=== PATIENT | male | born 1965 | race Caucasian/White ===

== ENCOUNTER → 2019-09-13 11:30 | Outpatient (BNVA) | payer OTHER, SELFPAY | PROVIDERS: Family Provider Family Medicine; PCP Nurse Practitioner; Visit Provider Urology | DX: R97.20 Elevated prostate specific antigen [PSA] (principal) | CPT/HCPCS: 81001; 84153 ==

== ENCOUNTER → 2021-09-12 10:22 | Outpatient (BNVA) | payer OTHER, SELFPAY | PROVIDERS: Family Provider Family Medicine; PCP Nurse Practitioner; Visit Provider Urology | DX: R97.20 Elevated prostate specific antigen [PSA] (principal); N40.1 Benign prostatic hyperplasia with lower urinary tract symptoms | CPT/HCPCS: 81003; 84153 ==

== ENCOUNTER 2022-06-28 14:41 | Outpatient (CLI) | payer OTHER, SELFPAY ==
--- NOTE | 2022-06-28 | MR_ITS ---
WS: [id number] INDICATION: Pain in RIGHT biceps tendon TECHNIQUE: MRI of the humerus without gadolinium enhancement. Coronal T1, coronal STIR, sagittal STIR , axial PD, axial T2 imaging. FINDINGS: Evidence of prior postoperative changes rotator cuff repair with humeral head anchors. Mode rate degenerative arthritis at the glenohumeral joint. Chronic thinning of the supraspinatus appears intact distally. Infraspinatus and teres minor appears intact. Subscapularis tendon appears intact. H ypertrophic spurring along the humeral head. Narrowing of the subacromial space. Chronic thinning of the supraspinatus. Small biceps tendon visualized in the proximal bicipital groove. Suggestion of edema in the biceps br achii muscle belly at the edge of the [id number]. Irregular flaccid appearing distal biceps tendon along the distal humerus likely torn from the distal insertion. This is not completely covered on th is study. MRI elbow will be necessary for complete evaluation. MR/MR humerus RT wo con* [id number] IMPRESSION: 1. At the edge of the [id number], biceps brachii tendon appears irregular a nd flaccid and likely completely torn from the distal insertion. Recommend orth opedic surgery consultation and MRI of the elbow for complete evaluation of the distal tendon. Distal insertion is not included on the study 2. Edema visualized in the biceps brachii muscle. 3. Small biceps tendon is seen in the proximal bicipital groove. 4. Evidence of prior rotator cuff surgery with thinning of the supraspinatus. Rotator cuff appears grossly intact. 5. Moderate degenerative arthritis glenohumeral joint with hypertrophic spurri ng and joint space narrowing. 6. Moderate degenerative arthritis AC joint with mild edema.
== END 2022-06-28 14:42 | disposition home or self-care (01) ==
PROVIDERS: PCP Nurse Practitioner; Visit Provider Nurse Practitioner
DX: M79.621 Pain in right upper arm (principal); M19.09 Primary osteoarthritis, other specified site; R60.9 Edema, unspecified
CPT/HCPCS: 73218

== ENCOUNTER 2023-08-29 12:18 | Emergency (ER) | payer OTHER, SELFPAY ==
[2023-08-29 12:34] VITALS: BP 137/74; PULSE 89; RESP 17; TEMP 36.7; O2SAT 92
--- NOTE | 2023-08-29 12:39 | XRR_ITS ---
PROCEDURE INFORMATION: Exam: XR Chest Exam date and time: 08/29/2023 12:42 PM Age: 58 years old Clinical indication: Cough and fever; Patient HX: Fever; Cough; Nausea TECHNIQUE: Imaging protocol: Radiologic exam of the chest. Views: 1 view. COMPARISON: MR humerus RT wo con* [id number] 06/28/2022 3:03 PM FINDINGS: Lungs: Atelectasis/patchy airspace opacities in left retrocardiac lung suspected. Pleural spaces: Unremarkable. No pleural effusion. No pneumothorax. Heart/Mediastinum: Unremarkable. No cardiomegaly. Bones/joints: Unremarkable. XR/XR chest 1V portable [id number] IMPRESSION: Atelectasis/patchy airspace opacities in left retrocardiac lung suspected. Recommend short-term follow-up study.
--- NOTE | 2023-08-29 12:49 | W.ED.FEVER ---
HPI - Fever General: Chief Complaint: Fever Stated Complaint: fever, nausea, diarrhea Time Seen by Provider: 08/29/23 12:34 History of Present Illness: 58-year-old man with a history of depression and hyperlipidemia who presents to the emergency room with continued fevers for the last 3 days. He was having follow-up for mastoiditis yesterday and had some nausea at that time. He is not on any antibiotics for the mastoiditis at this time. He had gone to ENT. He says he developed diarrhea yesterday and overnight. Initially did not have any. He had a mild cough. No shortness of breath. No altered mental status. He had copious sweats. I do state that he has had some tick bites. This was one of their concerns. They gone to urgent care from ENT because of the fever but nothing was done at the urgent care they say. Review of Systems Narrative: Constitutional symptoms: Negative except as documented in HPI. Skin symptoms: Negative except as documented in HPI. Eye symptoms: Negative except as documented in HPI. ENMT symptoms: Negative except as documented in HPI. Respiratory symptoms: Negative except as documented in HPI. Cardiovascular symptoms: Negative except as documented in HPI. Gastrointestinal symptoms: Negative except as documented in HPI. Genitourinary symptoms: Negative except as documented in HPI. Musculoskeletal symptoms: Negative except as documented in HPI. Neurologic symptoms: Negative except as documented in HPI. Psychiatric symptoms: Negative except as documented in HPI. Endocrine symptoms: Negative except as documented in HPI. [facility] ED PFS: Medical History (Updated 08/29/23 @ 13:52 by Lana Daly MD) Depression MRSA (methicillin resistant staph aureus) culture positive Nonspecific syndrome suggestive of viral illness BPH loc w urin obs/LUTS Elevated PSA Transient mild elevation of PSA (4.2) with normalization without treatment. Normal TEMITOPE's. Recommended continued screening Surgical History H/O knee surgery H/O hernia repair H/O shoulder surgery S/P tendon repair S/P tonsillectomy History of carpal tunnel release Family History Family/Other Cancer Esophageal, ovarian Mother , at age 73 Cancer ovarian -peritoneal Father , at age 78 Cancer esophageal cancer Social History Smoking and tobacco/nicotine status: never used tobacco/nicotine Alcohol intake: current Alcohol intake frequency: few times a month Substance/Drug Use: never Marital status: Current occupational status: retired Physical Exam Narrative: EXAM NARRATIVE: General: Alert, no acute distress. Skin: Warm, dry. Head: Normocephalic, atraumatic. Neck: Supple, trachea midline. Eye: Extraocular movements are intact. Ears, nose, mouth and throat: Tacky oral mucosa Cardiovascular: Regular, Normal peripheral perfusion. Respiratory: Lungs are clear to auscultation, respirations are non-labored, breath sounds are equal, Symmetrical chest wall expansion. Gastrointestinal: Soft, Nontender, Non distended, Normal bowel sounds. Musculoskeletal: Normal ROM, no deformity. Neurological: Alert and oriented, No focal neurological deficit observed. Psychiatric: Cooperative, appropriate mood & affect. Course Vital Signs: Vital signs: Vital Signs Temperature 98.1 F 08/29/23 12:34 Pulse Rate 89 08/29/23 12:34 Respiratory Rate 17 08/29/23 12:34 Blood Pressure 137/74 08/29/23 12:34 Pulse Oximetry 92 08/29/23 12:34 Oxygen Delivery Me thod Room Air 08/29/23 12:34 MDM - Fever Medical Decision Making Medical decision making: Differential diagnosis including but not limited to and based on the above HPI, review of systems and physical exam: In this patient with fevers and some nausea and mild vomiting and some diarrhea would suspect a viral gastroenteritis. He has had some cough. So respiratory panel is being sent. Chest x-ray being done. Lab work and blood cultures and lactic acid. Also would have a high concern for tickborne illness. UTI. Orders placed to evaluate differential diagnosis based on the above differential, HPI and physical exam Chest x-ray: Patchy process atelectasis versus infiltrate. No pneumothorax. No cardiomegaly. This was reviewed and interpreted by myself the ER physician. Lab Review: Laboratory results were reviewed and interpreted by myself the emergency room physician. White count is 10. Hemoglobin 12. Platelets are little low at 160. Sodium is a little bit low at 136. BUN and creatinine are 11 and 1.3. Suggesting some dehydration. Fluids are being given. Respiratory panel is pending at discharge. I reviewed the patient's medical record. Reexamination: Patient has remained stable. He has been afebrile. No increased work of breathing. No altered mental status. No focal motor deficits. We discussed plan of steroids and antibiotics and follow-up with his primary doctor. Assessment and plan: Febrile illness Dehydration -IV fluids and IV doxycycline and IV Decadron in the emergency room - Discharged home - Discussed plan with patient. Answered any questions. - Evaluation and treatment of this problem were appropriate in the emergency setting. Lab Data 08/29/23 12:54 08/29/23 12:54 Radiology Impressions Chest X-Ray 08/29/23 12:39 IMPRESSION: Atelectasis/patchy airspace opacities in left retrocardiac lung suspected. Recommend short-term follow-up study. Laboratory Results WBC 10.18 10^3/uL (3.29-11.43) 08/29/23 12:54 RBC 4.53 10^6/uL (3.85-5.65) 08/29/23 12:54 Hgb 12.10 g/dL (11.27-16.99) 08/29/23 12:54 Hct 37.8 % (37-53) 08/29/23 12:54 MCV 83.4 fl (82-101) 08/29/23 12:54 MCH 26.7 pg (27-33) L 08/29/23 12:54 MCHC 32.0 g/dL (30-55) 08/29/23 12:54 RDW 13.9 % (12.1-15.1) 08/29/23 12:54 Plt Count 160 10^3/cmm (157-399) 08/29/23 12:54 MPV 9.9 fL (7.4-10.4) 08/29/23 12:54 Neut % (Auto) 89.7 % 08/29/23 12:54 Lymph % (Auto) 3.1 % 08/29/23 12:54 [place] % (Auto) 6.8 % 08/29/23 12:54 Eos % (Auto) 0.0 % 08/29/23 12:54 Baso % (Auto) 0.2 % 08/29/23 12:54 Neut # (Auto) 9.13 10^3/uL (1.8-7.7) H 08/29/23 12:54 Lymph # (Auto) 0.3 10^3/uL (0.8-4.8) L 08/29/23 12:54 [place] # (Auto) 0.7 10^3/uL (0.2-0.9) 08/29/23 12:54 Eos # (Auto) 0.0 10^3/uL (0.0-0.8) 08/29/23 12:54 Baso # (Auto) 0.0 10^3/uL (0.0-0.1) 08/29/23 12:54 Nucleated RBC % (auto) 0 % 08/29/23 12:54 Nucleated RBCs # 0.0 /100WBC 08/29/23 12:54 Sodium 136 mmol/L (136-145) 08/29/23 12:54 Potassium 3.3 mmol/L (3.5-5.1) L 08/29/23 12:54 Chloride 101 mmol/L (98-107) 08/29/23 12:54 Carbon Dioxide 24 mmol/L (22-29) 08/29/23 12:54 Anion Gap 14.3 (5-19) 08/29/23 12:54 BUN 11 mg/dL (6-20) 08/29/23 12:54 Creatinine 1.3 mg/dL (0.7-1.2) H 08/29/23 12:54 GFR Calculation 56.9 mL/min (90-130) L 08/29/23 12:54 Glucose 174 mg/dL (65-115) H 08/29/23 12:54 Calculated Osmolality 286 mOsm/kg (285-295) 08/29/23 12:54 Lactic Acid 1.4 mmol/L (0.5-2.2) 08/29/23 12:54 Calcium 8.6 mg/dL (8.5-10.5) 08/29/23 12:54 Total Bilirubin 0.5 mg/dL (0.15-1.2) 08/29/23 12:54 AST 21 U/L (0-40) 08/29/23 12:54 ALT 26 U/L (0-41) 08/29/23 12:54 Alkaline Phosphatase 89 U/L (40-130) 08/29/23 12:54 C-Reactive Protein 104.9 mg/L (0.0-4.9) H 08/29/23 12:54 Total Protein 6.8 g/dL (6.6-8.7) 08/29/23 12:54 Albumin 3.7 g/dL (3.5-5.2) 08/29/23 12:54 Globulin 3.1 g/dL (1.3-4.6) 08/29/23 12:54 Urine Color Dark yellow (Yellow) 08/29/23 13:26 Urine Appearance Clear (CLEAR) 08/29/23 13:26 Urine pH 6 (5-7) 08/29/23 13:26 Ur Specific [place] 1.010 (1.005-1.030) 08/29/23 13:26 Urine Protein Trace (Negative) 08/29/23 13:26 Urine Glucose (UA) Norm (Normal) 08/29/23 13:26 Urine Ketones 1+ (Negative) H 08/29/23 13:26 Urine Blood Neg (Negative) 08/29/23 13:26 Urine Nitrate Negative (Negative) 08/29/23 13:26 Urine Bilirubin Neg (Negative) 08/29/23 13:26 Urine Urobilinogen Norm mg/dL (Negative) 08/29/23 13:26 Ur Leukocyte Esterase Negative (Negative) 08/29/23 13:26 Urine RBC None /hpf (0-2) 08/29/23 13:26 Urine WBC Rare /hpf (0-5) 08/29/23 13:26 Ur Squamous Epith Cells None /hpf (0-5) 08/29/23 13:26 Amorphous Sediment Not Reportable 08/29/23 13:26 Urine Bacteria Trace /hpf (NONE) 08/29/23 13:26 Adenovirus (PCR) Not detected (NOT DETECT) 08/29/23 13:20 C. pneumoniae DNA (PCR) Not detected (NOT DETECT) 08/29/23 13:20 Coronavirus 229E (PCR) Not detected (NOT DETECT) 08/29/23 13:20 Human Metapneumovir PCR Not detected (NOT DETECT) 08/29/23 13:20 Influenza A (H1) PCR Not detected (NOT DETECT) 08/29/23 13:20 Influ A (H1/09) PCR Not detected (NOT DETECT) 08/29/23 13:20 Influenza A (H3) PCR Not detected (NOT DETECT) 08/29/23 13:20 Influenza Type A (PCR) Not detected (NOT DETECT) 08/29/23 13:20 Influenza Type B (PCR) Not detected (NOT DETECT) 08/29/23 13:20 M. pneumoniae (PCR) Not detected (NOT DETECT) 08/29/23 13:20 Parainfluenza 1 (PCR) Not detected (NOT DETECT) 08/29/23 13:20 Parainfluenza 2 (PCR) Not detected (NOT DETECT) 08/29/23 13:20 Parainfluenza 3 (PCR) Not detected (NOT DETECT) 08/29/23 13:20 Parainfluenza 4 (PCR) Not detected (NOT DETECT) 08/29/23 13:20 RSV Type A (PCR) Not detected (NOT DETECT) 08/29/23 13:20 RSV Type B (PCR) Not detected (NOT DETECT) 08/29/23 13:20 Entero/Rhino (PCR) Not detected (NOT DETECT) 08/29/23 13:20 SARS-CoV-2 (PCR) Not detected (NOT DETECT) 08/29/23 13:20 All radiology interpretation(s) finalized by discharge Discharge Plan Discharge Patient Disposition: Home Clinical Impression: Febrile illness Tick bites Qualifiers: Encounter type: initial encounter Site of tick bite: unspecified site Qualified Code(s): W57.XXXA - Bitten or stung by nonvenomous insect and other nonvenomous arthropods, initial encounter Condition: Stable Prescriptions: New doxycycline hyclate 100 mg capsule 100 mg PO BID 10 Days Qty: 20 0RF dexamethasone 6 mg tablet 6 mg PO DAILY 5 Days Qty: 5 0RF No Action atorvastatin [Lipitor] 40 mg tablet 40 mg PO DAILY methocarbamol 750 mg tablet 750 mg PO Q8H PRN tamsulosin [Flomax] 0.4 mg capsule 0.4 mg PO DAILY sildenafil [Viagra] 100 mg tablet 100 mg PO DAILY PRN Rx Instructions: administer 30 minutes to 4 hours before activity sertraline [Zoloft] 100 mg tablet 100 mg PO DAILY esomeprazole magnesium [Nexium] 40 mg capsule,delayed release(DR/EC) 40 mg PO DAILY aspirin [Aspir-81] 81 mg tablet,delayed release (DR/EC) 81 mg PO DAILY multivitamin Tablet 1 tab PO DAILY naproxen 250 mg tablet 250 mg PO BID PRN Discharge Orders: Discharge ED (Routine); Ordered 08/29/23 Ordered By: Lana Daly Referrals: Cece Canas FNP [Primary Care Provider] - 1-3 days Discharge Diet: Usual diet Discharge Activity: Increase activity as tolerated Patient Instructions: Tick Bites, Fever in Adults (ED) Activity Restrictions/Additional Instructions: Thank you for choosing [facility] for your healthcare needs today. Please realize this is an emergency room and that we are providing you with a medical screening exam and this may not be complete and all inclusive of all the testing and or work up that you may need to determine your ailment or severity of your illness. You have been screened and evaluated and felt safe for discharge. Health conditions do change or evolve sometimes and as such it is important that you follow up with your Primary Doctor to be re checked, 3-5 days is a general good time frame for follow up. You are always welcome to return to the ED for re assessment if your symptoms are worsening or you have new concerns Coding Level of Care Code ED [place] for Fara Grace
[2023-08-29 13:04] LABS: Basophils % 0.2 %; Hematocrit 37.8 % (37-53); Lymphocytes # 0.3 10^3/uL (0.8-4.8); Lymphocytes % 3.1 %; Mean Corpuscular Hemoglobin 26.7 pg (27-33); Mean Corpuscular Volume 83.4 fl (82-101); Mean Platelet Volume 9.9 fL (7.4-10.4); Monocytes # 0.7 10^3/uL (0.2-0.9); Monocytes % 6.8 %; Neutrophils # 9.13 10^3/uL (1.8-7.7); Neutrophils % 89.7 %; Nucleated Red Blood Cells % 0 %; Platelet Count 160 10^3/cmm (157-399); Red Blood Count 4.53 10^6/uL (3.85-5.65); Red Cell Distribution Width 13.9 % (12.1-15.1); White Blood Count 10.18 10^3/uL (3.29-11.43)
[2023-08-29 13:20] LABS: Lactic Sepsis W/Reflex 1.4 mmol/L (0.5-2.2)
[2023-08-29 13:21] LABS: Alanine Aminotransferase 26 U/L (0-41); Albumin Level 3.7 g/dL (3.5-5.2); Alkaline Phosphatase 89 U/L (40-130); Anion Gap 14.3 (5-19); Aspartate Amino Transferase 21 U/L (0-40); Blood Urea Nitrogen 11 mg/dL (6-20); C Reactive Protein 104.9 mg/L (0.0-4.9); Calcium 8.6 mg/dL (8.5-10.5); Carbon Dioxide 24 mmol/L (22-29); Chloride 101 mmol/L (98-107); Globulin 3.1 g/dL (1.3-4.6); Glomerular Filtration Rate 56.9 mL/min (90-130); Glucose 174 mg/dL (65-115); Osmolality Calculated 286 mOsm/kg (285-295); Potassium 3.3 mmol/L (3.5-5.1); Sodium 136 mmol/L (136-145); Total Bilirubin 0.5 mg/dL (0.15-1.2); Total Protein 6.8 g/dL (6.6-8.7)
[2023-08-29 13:23] LABS: Creatinine Clr Calc Pharmacy 92.0016
[2023-08-29 13:36] LABS: Add Urine Culture? No; Bacteria Urine TRACE /hpf; Bilirubin Urine Neg (Negative); Blood Urine Neg (Negative); Glucose Urine UA Norm (Normal); Ketones Urine 1+ (Negative); Nitrate Urine Negative (Negative); Protein Urine Trace (Negative); Urine Appearance Clear (CLEAR); Urine Color Dark Yellow (Yellow); Urobilinogen Urine Norm (Negative); WBC Urine RARE /hpf (0-5); pH Urine 6 (5-7)
[2023-08-29] MEDS: doxycycline 100 MG in sodium chloride 0.9% (plus) 100 ML IV (13:48)
[2023-08-29] MEDS: sodium chloride 0.9% 1,000 ML 999 ML IV (13:49)
[2023-08-29 14:01] LABS: Leukocyte Esterase Urine Negative (Negative)
[2023-08-29 15:08] LABS: Adenovirus Not Detected (NOT DETECT); Chlamydia Pneumoniae Not Detected (NOT DETECT); Coronavirus 229E,HKU1,NL63,OC4 Not Detected (NOT DETECT); Human Metapneumovirus Not Detected (NOT DETECT); Human Rhinovirus/Enterovirus Not Detected (NOT DETECT); Influenza A Not Detected (NOT DETECT); Influenza A H1 Not Detected (NOT DETECT); Influenza A H1-2009 Not Detected (NOT DETECT); Influenza A H3 Not Detected (NOT DETECT); Influenza B Not Detected (NOT DETECT); Mycoplasma Pneumoniae Not Detected (NOT DETECT); Parainfluenza Virus Type 1 Not Detected (NOT DETECT); Parainfluenza Virus Type 2 Not Detected (NOT DETECT); Parainfluenza Virus Type 3 Not Detected (NOT DETECT); Parainfluenza Virus Type 4 Not Detected (NOT DETECT); Respiratory Syncytial Virus A Not Detected (NOT DETECT); Respiratory Syncytial Virus B Not Detected (NOT DETECT); SARS-COV-2 Not Detected (NOT DETECT)
[2023-08-29] MEDS: ibuprofen 800 mg tablet PO (15:32)
[2023-08-29 17:31] VITALS: BP 125/76; PULSE 81; RESP 16; TEMP 36.7; O2SAT 95
== END 2023-08-29 15:00 | disposition home or self-care (01) ==
PROVIDERS: Emergency Provider Emergency Medicine; PCP Nurse Practitioner
DX: R50.9 Fever, unspecified (principal); W57.XXXA Bitten or stung by nonvenomous insect and other nonvenomous arthropods, initial encounter
CPT/HCPCS: 36415; 71045; 80053; 81001; 83605; 85025; 86140; 87040; 87486; 87581; 87633; 96374; 99284; J3490; J7030

== ENCOUNTER → 2024-05-02 10:46 | Outpatient (BNVA) | payer OTHER, SELFPAY | PROVIDERS: PCP Nurse Practitioner; Visit Provider Nurse Practitioner Family | DX: D18.01 Hemangioma of skin and subcutaneous tissue (principal); L57.8 Other skin changes due to chronic exposure to nonionizing radiation; L91.8 Other hypertrophic disorders of the skin; R20.8 Other disturbances of skin sensation; Z78.9 Other specified health status; L53.8 Other specified erythematous conditions; D48.5 Neoplasm of uncertain behavior of skin; L57.0 Actinic keratosis | CPT/HCPCS: 11102; 17000; 17110; 99203 ==

== ENCOUNTER → 2024-06-02 09:39 | Outpatient (BNVA) | payer OTHER, SELFPAY | PROVIDERS: PCP Nurse Practitioner; Visit Provider Dermatology | DX: C44.321 Squamous cell carcinoma of skin of nose (principal) | CPT/HCPCS: 13152; 17311 ==

== ENCOUNTER → 2024-06-20 13:54 | Outpatient (BNVA) | payer OTHER, SELFPAY | PROVIDERS: PCP Nurse Practitioner; Visit Provider Dermatology | DX: T81.31XA Disruption of external operation (surgical) wound, not elsewhere classified, initial encounter (principal); X58.XXXA Exposure to other specified factors, initial encounter | CPT/HCPCS: 99213 ==

== ENCOUNTER → 2024-07-04 13:17 | Outpatient (BNVA) | payer OTHER, SELFPAY | PROVIDERS: PCP Nurse Practitioner; Visit Provider Dermatology | DX: L72.0 Epidermal cyst (principal); T81.31XA Disruption of external operation (surgical) wound, not elsewhere classified, initial encounter; X58.XXXA Exposure to other specified factors, initial encounter | CPT/HCPCS: 99212 ==

== ENCOUNTER → 2024-11-04 09:57 | Outpatient (BNVA) | payer OTHER, SELFPAY | PROVIDERS: PCP Nurse Practitioner; Visit Provider Nurse Practitioner Family | DX: L72.0 Epidermal cyst (principal); D18.01 Hemangioma of skin and subcutaneous tissue; L57.8 Other skin changes due to chronic exposure to nonionizing radiation; Z08 Encounter for follow-up examination after completed treatment for malignant neoplasm; Z85.828 Personal history of other malignant neoplasm of skin; L57.0 Actinic keratosis | CPT/HCPCS: 17000; 99213 ==